=== PATIENT | male | born 1980 | race Caucasian/White ===

== ENCOUNTER 2023-03-07 16:38 | Emergency (ER) | payer OTHER ==
[~2023-03-07] VITALS: Ht 172.7 cm; Wt 79.4 kg
[2023-03-07] MEDS ORDERED: TDAP [DIPH/PERTUSSIS/TET] 0.5 ML VIAL IM ONE ×2 (16:51→17:00)
[2023-03-07] MEDS ORDERED: BACI/NEOM/POLY B OINT PKT 1 UDPKT PACKET ONE (16:51)
[2023-03-07] MEDS ORDERED: ACETAMINOPHEN ES 500 MG TABLET ONE (16:51)
[2023-03-07] MEDS ORDERED: ACETAMINOPHEN ES 500 MG TABLET PO ONE (17:00)
[2023-03-07] MEDS ORDERED: BACI/NEOM/POLY B OINT PKT 1 UDPKT PACKET TP ONE (17:00)
[2023-03-07] MEDS ORDERED: IV NS 0.9% 1,000 ML BAG IV ONE (17:00)
[2023-03-07] MEDS ORDERED: LIDOCAINE HCL/PF 1% 30 ML SDV ONE (18:59)
[2023-03-07] MEDS ORDERED: LIDOCAINE HCL/PF 1% 30 ML VIAL TP ONE (19:00)
[2023-03-07] MEDS ORDERED: CYCL5TAB PO (20:18)
[2023-03-07] MEDS ORDERED: HYDR-4303 PO (20:18)
[2023-03-07] MEDS ORDERED: AMOX-430 PO (20:18)
[2023-03-07] MEDS ORDERED: IBUP-1955 PO (20:18)
[2023-03-07] MEDS ORDERED: HYDROCODONE/APAP 5/325MG TABLET ONE (20:33)
[2023-03-07 20:39] VITALS: BP 115/82; TEMP 98.2; O2SAT 100
[2023-03-07] MEDS ORDERED: HYDROCODONE/APAP 5/325MG TABLET PO ONE (21:00)
== END 2023-03-07 20:40 | disposition home or self-care (01) ==
LOC: ER 16:46
DX: S01.511A Laceration without foreign body of lip, initial encounter (principal); S80.811A Abrasion, right lower leg, initial encounter; S80.812A Abrasion, left lower leg, initial encounter; S40.811A Abrasion of right upper arm, initial encounter; S40.812A Abrasion of left upper arm, initial encounter; M25.531 Pain in right wrist; M79.10 Myalgia, unspecified site; Z79.899 Other long term (current) drug therapy; W11.XXXA Fall on and from ladder, initial encounter; Y93.89 Activity, other specified; Y92.89 Other specified places as the place of occurrence of the external cause; Y99.8 Other external cause status
CPT/HCPCS: 12011; 70450; 71045; 72125; 72170; 73080; 73090; 73110; 73590; 96360; 99284; A6403; J3490; J7030; 90715